=== PATIENT | female | born 1970 | race Caucasian/White ===

== ENCOUNTER 2016-09-05 00:23 | Emergency (ER) | payer MEDICAID ==
[~2016-09-05] VITALS: Ht 170.2 cm; Wt 69.4 kg
[2016-09-05] MEDS ORDERED: FLUO10CA13 PO (00:58)
[2016-09-05] MEDS ORDERED: QUET100T4 PO (00:58)
[2016-09-05 01:09] LABS: ASPARTATE AMINO TRANSFERASE 37 U/L (15-37); BLOOD UREA NITROGEN 23 mg/dL (7-18)
[2016-09-05] MEDS ORDERED: CEFTRIAXONE 1,000 MG ONE (01:30)
[2016-09-05] MEDS ORDERED: CEFTRIAXONE 1,000 MG IM ONE (01:30)
[2016-09-05 02:11] VITALS: BP 101/69
== END 2016-09-05 02:12 | disposition home or self-care (01) ==
LOC: ED 02:06
DX: N10 Acute pyelonephritis (principal); N39.0 Urinary tract infection, site not specified; R31.9 Hematuria, unspecified; Z90.49 Acquired absence of other specified parts of digestive tract
CPT/HCPCS: 36415; 74176; 80053; 81001; 84703; 85025; 87077; 87086; 87186; 96372; 99285; J0696

== ENCOUNTER 2016-10-18 22:50 | Observation (INO) | payer MEDICAID ==
[~2016-10-18] VITALS: Ht 167.6 cm; Wt 55.0 kg
[~2016-10-18 22:50] MED LIST: FLUO10CA13 PO; QUET100T4 PO
[2016-10-18] MEDS ORDERED: ZIPRASIDONE 20 MG INJ IM ONE ×2 (23:23→23:30)
[2016-10-18 23:34] LABS: ASPARTATE AMINO TRANSFERASE 21 U/L (15-37); BLOOD UREA NITROGEN 20 mg/dL (7-18)
[2016-10-18 23:39] LABS: ACETAMINOPHEN < 2 mcg/mL (10-30)
[2016-10-19] MEDS ORDERED: POTASSIUM CHLORIDE 20 MEQ TAB.ER.PRT PO ONE ×2 (04:00→09:30)
[2016-10-19] MEDS ORDERED: POTASSIUM CHLORIDE 20 MEQ TAB.ER.PRT ONE (04:37)
[2016-10-19 09:11] LABS: DAU SCREEN DISCLAIMER
[2016-10-19 09:23] LABS: PATH.CAST-FLAG NOT PRESENT; SPERM-FLAG NOT PRESENT; SRC-FLAG NOT PRESENT; XTAL-FLAG NOT PRESENT; YLC-FLAG NOT PRESENT
[2016-10-19] MEDS ORDERED: ONDANSETRON ODT 4 MG PO PRN (09:30)
[2016-10-19] MEDS ORDERED: NICOTINE 14MG/24 HR PATCH.TD24 TD SCH (09:30)
[2016-10-19] MEDS ORDERED: ACETAMINOPHEN 325 MG TABLET PO PRN (09:30)
[2016-10-19 09:43] VITALS: BP 129/91
[2016-10-19] MEDS ORDERED: QUETIAPINE 100MG TABLET PO SCH (10:00)
[2016-10-19] MEDS ORDERED: FLUOXETINE 10 MG CAP PO SCH (10:00)
[2016-10-19] MEDS ORDERED: CEFDINIR 300 MG CAPSULE PO SCH (21:00)
[2016-10-20] MEDS ORDERED: CEFD300C37 PO (07:43)
== END 2016-10-19 18:53 ==
LOC: ED 23:21 → EDIP 10-19 04:09 → 3E 10-19 09:40
PROVIDERS: ADMIT Internal Medicine; ATTEND Internal Medicine
DX: F23 Brief psychotic disorder (principal); F15.20 Other stimulant dependence, uncomplicated; F22 Delusional disorders; F20.9 Schizophrenia, unspecified; E87.6 Hypokalemia; Z91.14 Patient's other noncompliance with medication regimen; Z87.891 Personal history of nicotine dependence
CPT/HCPCS: 36415; 80053; 80307; 80329; 81001; 85025; 87077; 87086; 87186; 96372; 99285; G0378; J3486; G0480

== ENCOUNTER 2018-03-06 13:40 | Emergency (ER) | payer MEDICAID, OTHER ==
[~2018-03-06] VITALS: Ht 170.2 cm; Wt 73.3 kg
[~2018-03-06 13:40] MED LIST changes: +CEFD300C37 PO
[2018-03-06] MEDS ORDERED: LIDOCAINE-MPF 1%, 5ML ONE (14:11)
[2018-03-06] MEDS ORDERED: LIDOCAINE 1%, 10ML INFIL ONE (14:30)
[2018-03-06 15:29] VITALS: BP 137/86
== END 2018-03-06 15:31 | disposition home or self-care (01) ==
LOC: ED 14:30
DX: N75.1 Abscess of Bartholin's gland (principal); I10 Essential (primary) hypertension
CPT/HCPCS: 56420; 99283

== ENCOUNTER 2018-06-08 11:19 | Emergency (ER) | payer MEDICAID ==
[~2018-06-08] VITALS: Ht 167.6 cm; Wt 72.0 kg
[2018-06-08 11:21] VITALS: BP 121/79
--- NOTE | 2018-06-08 12:12 | NUR ---
ASSUME CARE FOR DISCHARGE. WHEN REVIEWING SCRIPT, PT STARTING YELLING AND USING PROFANITY AT THIS RN. PT STATES SHE ISN'T GOING TO TAKE "FUCKING NAPROSYN", "I WANT A FUCKING PAIN PILL", "I'M NOT DRUG SEEKING AND I'M NOT LEAVING UNTIL THE DR GIVES ME PAIN MEDS".
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
== END 2018-06-08 12:40 | disposition home or self-care (01) ==
LOC: ED 12:26
DX: G89.29 Other chronic pain (principal); M79.621 Pain in right upper arm; I10 Essential (primary) hypertension; F32.9 Major depressive disorder, single episode, unspecified
CPT/HCPCS: 99283